=== PATIENT | female | born 1980 | race Caucasian/White ===

== ENCOUNTER 2019-04-23 12:01 | Emergency (ER) | payer MEDICAID ==
[~2019-04-23] VITALS: Ht 154.9 cm; Wt 62.6 kg
[2019-04-23 12:07] VITALS: BP 117/77; Ht 154.9 cm; Wt 62.6 kg
== END 2019-04-23 14:14 | disposition left against medical advice (07) ==
LOC: ED 12:01
DX: Z53.21 Procedure and treatment not carried out due to patient leaving prior to being seen by health care provider (principal)